=== PATIENT | female | born 1935 | race Caucasian/White ===

== ENCOUNTER 2017-01-20 16:44 | Inpatient (IN) | payer OTHER ==
[~2017-01-20] VITALS: Ht 154.9 cm; Wt 57.2 kg
[2017-01-20 16:45] VITALS: BP 92/49; PULSE 105; RESP 20; TEMP 97.6; O2SAT 94
[2017-01-20] MEDS ORDERED: GASTROGRAFIN 120 ML ONE (17:00)
[2017-01-20 17:30] LABS: BASOPHILS # (AUTO) 0.2 K/uL (0.0-0.2); BASOPHILS % (AUTO) 1.7 % (0.0-2.0); EOSINOPHILS % (AUTO) 0.4 % (0.0-4.0); HEMOGLOBIN 11.4 g/dL (12.0-16.0); LYMPHOCYTES # (AUTO) 0.9 K/uL (1.0-5.5); LYMPHOCYTES % (AUTO) 7.9 % (20.5-51.5); MEAN CORPUSCULAR HEMOGLOBIN 28 pg (27-31); MEAN CORPUSCULAR HGB CONC 33 % (32-36); MEAN CORPUSCULAR VOLUME 87 fL (79.0-98.0); MONOCYTES # (AUTO) 0.1 K/uL (0.0-1.0); NEUTROPHILS # (AUTO) 10.3 K/uL (1.8-7.7); PLATELET COUNT (AUTO) 248 K/uL (130-430); RED BLOOD CELL COUNT(AUTO) 4.04 MIL/uL (4.2-6.2); RED CELL DISTRIBUTION WIDTH 18.4 % (9.0-15.0); WHITE BLOOD COUNT (AUTO) 11.5 K/uL (4.8-10.8)
[2017-01-20 17:45] LABS: INR 1.2 (0.8-1.2); PROTHROMBIN TIME 12.9 SECS (9.5-12.5)
[2017-01-20 17:54] LABS: SODIUM SERUM 140 mmol/L (136-145)
[2017-01-20 17:55] LABS: ANION GAP 9 (5-15); CHLORIDE 96 mmol/L (98-107); POTASSIUM 2.7 mmol/L (3.5-5.1)
[2017-01-20 17:56] LABS: ASPARTATE AMINOTRANSFERASE 23 U/L (10-37); CALCIUM 8.8 mg/dL (8.4-11.0); CREATININE 2.06 mg/dL (0.55-1.30); GLUCOSE 118 mg/dL (70-99); TOTAL BILIRUBIN 0.8 mg/dL (0.0-1.0); UREA NITROGEN, BLOOD 42 mg/dL (8-21)
[2017-01-20 17:57] LABS: ALANINE AMINOTRANSFERASE 14 U/L (12-78); CREATINE KINASE, TOTAL 178 U/L (26-192); TOTAL PROTEIN, SERUM 7.6 g/dL (6.4-8.3)
[2017-01-20] MEDS ORDERED: KCL 20 mEq in 100 mL (PREMIX) 100 ML IV ONE (18:15)
[2017-01-20] MEDS ORDERED: NACL 0.9% 1,000 ML IV ONE ×2 (18:15→18:45)
[2017-01-20] MEDS ORDERED: LEVOFLOXACIN 500 MG/D5W 100 ML IV ONE (18:30)
[2017-01-20] MEDS ORDERED: ROXANOL (19:00)
[2017-01-20] MEDS ORDERED: ATREYE1 (19:00)
[2017-01-20] MEDS ORDERED: PROC-14 (19:00)
[2017-01-20] MEDS ORDERED: BISA10SU77 (19:00)
[2017-01-20] MEDS ORDERED: MAGNESIUM SULFATE 50 ML IV PRN (19:15)
[2017-01-20] MEDS ORDERED: LORazepam 2 MG/ML VIAL IVP PRN (19:15)
[2017-01-20] MEDS ORDERED: DOCUSATE SODIUM 100 MG CAPSULE PO PRN (19:15)
[2017-01-20] MEDS ORDERED: ZOLPIDEM TARTRATE 5 MG TABLET PO PRN (19:15)
[2017-01-20] MEDS ORDERED: ONDANSETRON HCL 4 MG/2 ML VIAL IVP PRN (19:15)
[2017-01-20] MEDS ORDERED: POTASSIUM CHLORIDE 10 MEQ TAB.PRT.SR PO PRN (19:15)
[2017-01-20 19:24] VITALS: BP 101/39; PULSE 124; RESP 24; TEMP 97.1; O2SAT 98
[2017-01-20] MEDS ORDERED: IPRATROPIUM/ALBUTEROL SULFATE 3 ML AMPUL.NEB ONE (20:31)
[2017-01-20 20:55] VITALS: BP 143/83; PULSE 118
[2017-01-20] MEDS: HEPARIN SODIUM,PORCINE 5000 UNITS/ML VIAL SUBCUT SCH (21:07)
[2017-01-21] VITALS (7 sets, daily range): BP systolic 106–135; BP diastolic 54–78; PULSE 70–122; RESP 17–20; TEMP 97.5–99.2; O2SAT 93–99
[2017-01-21] MEDS: IPRATROPIUM/ALBUTEROL SULFATE 3 ML AMPUL.NEB INH SCH ×4 (00:57→19:34)
[2017-01-21] MEDS: NACL 0.9% 1,000 ML IV SCH ×3 (06:58→18:15)
[2017-01-21 08:00] LABS: HEMATOCRIT 28.5 % (36-48); HEMOGLOBIN 9.5 g/dL (12.0-16.0); MEAN CORPUSCULAR HEMOGLOBIN 29 pg (27-31); MEAN CORPUSCULAR HGB CONC 33 % (32-36); MEAN CORPUSCULAR VOLUME 87 fL (79.0-98.0); PLATELET COUNT (AUTO) 214 K/uL (130-430); RED BLOOD CELL COUNT(AUTO) 3.28 MIL/uL (4.2-6.2); RED CELL DISTRIBUTION WIDTH 18.5 % (9.0-15.0)
[2017-01-21 08:13] LABS: WHITE BLOOD COUNT (AUTO) 9.9 K/uL (4.8-10.8)
[2017-01-21 08:17] LABS: ANION GAP 6 (5-15); CHLORIDE 105 mmol/L (98-107); CREATININE 2.13 mg/dL (0.55-1.30); GLUCOSE 143 mg/dL (70-99); POTASSIUM 3.1 mmol/L (3.5-5.1); SODIUM SERUM 145 mmol/L (136-145); UREA NITROGEN, BLOOD 44 mg/dL (8-21)
[2017-01-21] MEDS ORDERED: ATROPINE SULFATE 1% BOTH EYES SCH ×2 (09:00→09:19)
[2017-01-21] MEDS ORDERED: EYE BOTH EYES SCH ×2 (09:00→09:19)
[2017-01-21] MEDS: HEPARIN SODIUM,PORCINE 5000 UNITS/ML VIAL SUBCUT SCH ×2 (09:18→20:58)
[2017-01-21] MEDS ORDERED: ATROPINE SULFATE 1% BOTH EYES ONE (09:30)
[2017-01-21] MEDS ORDERED: EYE BOTH EYES ONE (09:30)
[2017-01-21] MEDS: cefTRIAXone 1 GM in D5W 50 ML IV SCH (09:31)
[2017-01-21 09:41] LABS: ATYPICAL LYMPHOCYTES % 0 % (0-0); BAND % (MANUAL) 2 % (0-6); BASOPHILS % (MANUAL) 0 % (0-2); EOSINOPHILS % (MANUAL) 1 % (0-7); LYMPHOCYTES % (MANUAL) 17 % (20-46); MONOCYTES % (MANUAL) 2 % (0-11)
[2017-01-21] MEDS ORDERED: POTASSIUM CHLORIDE 40 MEQ, LIDOCAINE JECT 2% PF 100 MG 50 MG in NS 250 ML IV ONE (09:45)
[2017-01-21 14:19] LABS: BILIRUBIN,URINE NEGATIVE (NEGATIVE); BLOOD, URINE 1+ (NEGATIVE); CLARITY/URINE HAZY (CLEAR); COLOR,URINE AMBER (YELLOW); GLUCOSE,URINE NEGATIVE (NEGATIVE); KETONES,URINE TRACE (NEGATIVE); LEUKOCYTE ESTERASE ,URINE NEGATIVE (NEGATIVE); NITRITE, URINE NEGATIVE (NEGATIVE); PROTEIN URINE 1+ (NEGATIVE); UROBILINOGEN,URINE 0.2 (0.2-1.0)
[2017-01-21 14:33] LABS: BACTERIA,URINE MODERATE /HPF (None Seen); URINE AMORPHOUS URATE 2+ /HPF (None Seen); WBC,URINE 0-3 /HPF (0-3)
[2017-01-22 00:26] VITALS: BP 110/70; PULSE 109; RESP 18; TEMP 98.8; O2SAT 100
[2017-01-22] MEDS: NACL 0.9% 1,000 ML IV SCH (00:31)
[2017-01-22] MEDS: IPRATROPIUM/ALBUTEROL SULFATE 3 ML AMPUL.NEB INH SCH ×4 (03:56→19:46)
[2017-01-22 06:30] VITALS: BP 128/77; PULSE 107; RESP 19; TEMP 99.7; O2SAT 99
[2017-01-22 07:21] LABS: BASOPHILS % (AUTO) 0.2 % (0.0-2.0); EOSINOPHILS # (AUTO) 0.1 K/uL (0.0-0.4); EOSINOPHILS % (AUTO) 1.4 % (0.0-4.0); HEMATOCRIT 26.9 % (36-48); HEMOGLOBIN 8.6 g/dL (12.0-16.0); LYMPHOCYTES # (AUTO) 1.4 K/uL (1.0-5.5); LYMPHOCYTES % (AUTO) 14.3 % (20.5-51.5); MEAN CORPUSCULAR HEMOGLOBIN 28 pg (27-31); MEAN CORPUSCULAR HGB CONC 32 % (32-36); MEAN CORPUSCULAR VOLUME 88 fL (79.0-98.0); MONOCYTES # (AUTO) 0.3 K/uL (0.0-1.0); MONOCYTES % (AUTO) 3.4 % (1.7-9.3); NEUTROPHILS # (AUTO) 8.3 K/uL (1.8-7.7); NEUTROPHILS % (AUTO) 80.7 % (40.0-70.0); PLATELET COUNT (AUTO) 206 K/uL (130-430); RED BLOOD CELL COUNT(AUTO) 3.05 MIL/uL (4.2-6.2); RED CELL DISTRIBUTION WIDTH 18.6 % (9.0-15.0); WHITE BLOOD COUNT (AUTO) 10.1 K/uL (4.8-10.8)
[2017-01-22 07:36] LABS: ANION GAP 0 (5-15); CHLORIDE 112 mmol/L (98-107); GLUCOSE 204 mg/dL (70-99); POTASSIUM 3.2 mmol/L (3.5-5.1); SODIUM SERUM 150 mmol/L (136-145)
[2017-01-22 07:37] LABS: ALANINE AMINOTRANSFERASE 14 U/L (12-78); ALBUMIN 1.5 g/dL (3.4-4.8); ASPARTATE AMINOTRANSFERASE 21 U/L (10-37); CALCIUM 7.8 mg/dL (8.4-11.0); TOTAL BILIRUBIN 0.4 mg/dL (0.0-1.0); TOTAL PROTEIN, SERUM 6.1 g/dL (6.4-8.3); UREA NITROGEN, BLOOD 33 mg/dL (8-21)
[2017-01-22 08:01] VITALS: BP 128/86; PULSE 102; RESP 20; TEMP 99.5; O2SAT 96
[2017-01-22] MEDS ORDERED: POTASSIUM CHLORIDE 40 MEQ, LIDOCAINE JECT 2% PF 100 MG 50 MG in NS 250 ML IV ONE (08:15)
[2017-01-22] MEDS: ATROPINE SULFATE 1% BOTH EYES SCH (09:00)
[2017-01-22] MEDS: EYE BOTH EYES SCH (09:00)
[2017-01-22] MEDS: cefTRIAXone 1 GM in D5W 50 ML IV SCH (09:50)
[2017-01-22] MEDS: HEPARIN SODIUM,PORCINE 5000 UNITS/ML VIAL SUBCUT SCH ×2 (09:55→20:23)
[2017-01-22] MEDS: 0.45% NACL 1,000 ML IV SCH (10:09)
[2017-01-22 12:00] VITALS: BP 131/45; PULSE 110; RESP 18; TEMP 98.9
[2017-01-22 16:19] VITALS: BP 101/64; PULSE 86; RESP 20; TEMP 99.1; O2SAT 97
[2017-01-22 16:42] VITALS: Ht 154.9 cm; Wt 57.2 kg
[2017-01-22 19:40] VITALS: BP 124/92; PULSE 107; RESP 18; TEMP 100.2; O2SAT 95
[2017-01-22] MEDS: MORPHINE 2 MG/ML INJ. SYRINGE IVP PRN (20:18)
[2017-01-22] MEDS: ACETAMINOPHEN 325 MG TABLET PO PRN (20:23)
[2017-01-22] MEDS: MUPIROCIN 2% TOPICAL OINTMENT 22 GM TP SCH (20:24)
[2017-01-23] VITALS (11 sets, daily range): BP systolic 90–143; BP diastolic 39–73; PULSE 71–136; RESP 18–25; TEMP 96.9–101.2; O2SAT 93–100
[2017-01-23] MEDS: IPRATROPIUM/ALBUTEROL SULFATE 3 ML AMPUL.NEB INH SCH ×3 (00:02→14:46)
[2017-01-23] MEDS: MORPHINE 2 MG/ML INJ. SYRINGE IVP PRN (02:28)
[2017-01-23] MEDS: 0.45% NACL 1,000 ML IV SCH (04:59)
[2017-01-23 07:21] LABS: ANION GAP 4 (5-15); CHLORIDE 109 mmol/L (98-107); CREATININE 0.89 mg/dL (0.55-1.30); GLUCOSE 135 mg/dL (70-99); POTASSIUM 3.7 mmol/L (3.5-5.1); SODIUM SERUM 147 mmol/L (136-145); UREA NITROGEN, BLOOD 24 mg/dL (8-21)
[2017-01-23 07:24] LABS: BASOPHILS % (AUTO) 0.1 % (0.0-2.0); EOSINOPHILS # (AUTO) 0.1 K/uL (0.0-0.4); EOSINOPHILS % (AUTO) 0.9 % (0.0-4.0); HEMATOCRIT 27.2 % (36-48); HEMOGLOBIN 8.7 g/dL (12.0-16.0); LYMPHOCYTES # (AUTO) 2.1 K/uL (1.0-5.5); LYMPHOCYTES % (AUTO) 16.4 % (20.5-51.5); MEAN CORPUSCULAR HEMOGLOBIN 28 pg (27-31); MEAN CORPUSCULAR HGB CONC 32 % (32-36); MEAN CORPUSCULAR VOLUME 87 fL (79.0-98.0); MONOCYTES # (AUTO) 0.5 K/uL (0.0-1.0); MONOCYTES % (AUTO) 4.3 % (1.7-9.3); NEUTROPHILS % (AUTO) 78.3 % (40.0-70.0); PLATELET COUNT (AUTO) 210 K/uL (130-430); RED BLOOD CELL COUNT(AUTO) 3.13 MIL/uL (4.2-6.2); RED CELL DISTRIBUTION WIDTH 18.1 % (9.0-15.0); WHITE BLOOD COUNT (AUTO) 12.7 K/uL (4.8-10.8)
[2017-01-23] MEDS ORDERED: MAGNESIUM SULFATE 50 ML IV ONE (09:00)
[2017-01-23] MEDS: MUPIROCIN 2% TOPICAL OINTMENT 22 GM TP SCH (09:34)
[2017-01-23] MEDS: ACETAMINOPHEN 325 MG TABLET PO PRN (09:34)
[2017-01-23] MEDS: HEPARIN SODIUM,PORCINE 5000 UNITS/ML VIAL SUBCUT SCH (09:41)
[2017-01-23] MEDS: ATROPINE SULFATE 1% BOTH EYES SCH (11:37)
[2017-01-23] MEDS: EYE BOTH EYES SCH (11:37)
[2017-01-23] MEDS ORDERED: PIPERACILLIN/TAZO 3.375/DEX-IS 50 ML IV SCH (12:00)
== END 2017-01-23 18:50 | disposition short-term general hospital (02) | DRG 871 ==
LOC: SED 16:44 → STU 18:43
PROVIDERS: ADMIT General Practice; ATTEND General Practice
DX: A41.9 Sepsis, unspecified organism (principal); N17.0 Acute kidney failure with tubular necrosis; E43 Unspecified severe protein-calorie malnutrition; K94.23 Gastrostomy malfunction; I13.0 Hypertensive heart and chronic kidney disease with heart failure and stage 1 through stage 4 chronic kidney disease, or unspecified chronic kidney disease; Z68.23 Body mass index [BMI] 23.0-23.9, adult; E87.6 Hypokalemia; I25.10 Atherosclerotic heart disease of native coronary artery without angina pectoris; F02.80 Dementia in other diseases classified elsewhere, unspecified severity, without behavioral disturbance, psychotic disturbance, mood disturbance, and anxiety; G20 Parkinson's disease; G30.9 Alzheimer's disease, unspecified; J44.9 Chronic obstructive pulmonary disease, unspecified; L08.9 Local infection of the skin and subcutaneous tissue, unspecified; N18.9 Chronic kidney disease, unspecified; E11.22 Type 2 diabetes mellitus with diabetic chronic kidney disease; F39 Unspecified mood [affective] disorder; I50.9 Heart failure, unspecified; R13.10 Dysphagia, unspecified; Z51.5 Encounter for palliative care; R62.7 Adult failure to thrive; Z88.2 Allergy status to sulfonamides; Z74.01 Bed confinement status; I25.2 Old myocardial infarction; Z86.73 Personal history of transient ischemic attack (TIA), and cerebral infarction without residual deficits; Z22.322 Carrier or suspected carrier of Methicillin resistant Staphylococcus aureus
CPT/HCPCS: 36415; 71010; 74240-TC; 80048; 80053; 81000-TC; 82550-TC; 83605; 83735-TC; 83880; 84484; 85007; 85025; 85027; 85610-TC; 85730-TC; 87040-TC; 87081; 87086; 93005; 93306; 94640; 94760; 96365; 96368; 99285; J0696; J1644; J1956; J2060; J2270; J2543; J3475; J3480; J7030; J7050; J7060; Q9963